=== PATIENT | female | born 1955 | race African-American/Black ===

== ENCOUNTER 2016-05-14 00:32 | Emergency (ER) | payer OTHER ==
[~2016-05-14] VITALS: Ht 175.3 cm; Wt 59.0 kg
[~2016-05-14 00:32] MED LIST: CATAPRES0.1 MG PO
[2016-05-14 00:34] VITALS: BP 121/82
--- NOTE | 2016-05-14 01:56 | NUR ---
TO ER BED 8
--- NOTE | 2016-05-14 02:05 | NUR ---
61Y/F PATIENT PRESENTS TO ED WITH C/O ANXIETY X 3 WKS. PT STATES SHE IS AHVING HEADACHE, ALSO STATES " I DONT WANT TO GO OUTSIDE BECAUSE I AM AFRAID SOMEONE WILL HIT ME". DENIES N/V/D; SKIN IS PINK/WARM/DRY; AAOX4 WITH EVEN AND STEADY GAIT;EPISODE OF AGITATION NOTED. LUNGS CLEAR BL; HR EVEN AND REGULAR; PT DENIES ANY FEVER, CP, SOB, OR COUGH AT THIS TIME; C/O HEADACHE, PATIENT STATES PAIN OF 9/10 AT THIS TIME; VSS; PATIENT POSITIONED FOR COMFORT; HOB ELEVATED; BEDRAILS UP X2; BED DOWN. ER MD MADE AWARE OF PT STATUS.
[2016-05-14 04:21] VITALS: BP 118/78
== END 2016-05-14 04:22 | disposition home or self-care (01) ==
LOC: MED 00:32
DX: F41.9 Anxiety disorder, unspecified (principal); F60.0 Paranoid personality disorder; I10 Essential (primary) hypertension; F17.210 Nicotine dependence, cigarettes, uncomplicated